=== PATIENT | male | born 1955 | race Caucasian/White ===

== ENCOUNTER 2017-03-06 07:30 | Emergency (ER) | payer BC ==
[2017-03-06 07:38] VITALS: BP 135/74
--- NOTE | 2017-03-06 07:53 | UC ---
Respiratory Complaint HPI - HPI Summary HPI Summary: cough x 2 weeks + productive cough , yellow/ green sputum + fever and chills at the start , better now no nasal congestion, no sore throat - History of Current Complaint Chief Complaint: UCRespiratory Stated Complaint: COUGH,CHEST CONGESTION Time Seen by Provider: 03/06/17 07:44 Hx Obtained From: Patient Timing: Constant Severity Initially: Moderate Severity Currently: Moderate Character: Cough: Productive Aggravating Factors: Exertion, Deep Breaths Alleviating Factors: Nothing Associated Signs And Symptoms: Positive: Fever, Chills. Negative: Dyspnea, Pleuritic Chest Pain, Wheezing, Hemoptysis, Dizziness, Calf Pain, Calf Swelling , Edema, URI, Nasal Congestion, Sinus Discomfort - Allergies/Home Medications Allergies/Adverse Reactions: Allergies Allergy/AdvReac Type Severity Reaction Status Date / Time Penicillins Allergy Intermediate Rash Verified 03/06/17 07:38 PMH/Surg Hx/FS Hx/Imm Hx Previously Healthy: Yes - Surgical History Surgical History: Yes Surgery Procedure, Year, and Place: R ROTATOR CUFF REPAIR. RUPTURED L ACHILLES TENDON REPAIR. LEFT TORN MENISCUS KNEE--SX REPAIR - Family History Known Family History: Negative: Diabetes - Social History Alcohol Use: Daily Alcohol Amount: glass of wine Substance Use Type: None Smoking Status (MU): Never Smoked Tobacco Type: Cigarettes Have You Smoked in the Last Year: No When Did the Patient Quit Smoking/Using Tobacco: 30 YRS AGO - Immunization History Most Recent Influenza Vaccination: FALL 2013 Most Recent Tetanus Shot: UNKNOWN Hx Tetanus, Diphtheria Vaccination: Yes Vaccination Up to Date: Yes Review of Systems Constitutional: Fever, Chills Skin: Negative Eyes: Negative ENT: Negative Respiratory: Cough Cardiovascular: Negative Gastrointestinal: Negative Genitourinary: Negative All Other Systems Reviewed And Are Negative: Yes Physical Exam Triage Information Reviewed: Yes Appearance: Well-Appearing, No Pain Distress, Well-Nourished Vital Signs: Initial Vital Signs Temp 98.5 F 03/06/17 07:31 Pulse 61 03/06/17 07:31 Resp 16 03/06/17 07:31 BP 135/74 03/06/17 07:31 Pulse Ox 98 03/06/17 07:31 Vital Signs Reviewed: Yes Eyes: Positive: Conjunctiva Clear ENT: Positive: Normal ENT inspection, Pharynx normal, TMs normal. Negative: Nasal congestion, Nasal drainage Neck: Positive: Supple, Nontender, No Lymphadenopathy Respiratory: Positive: Chest non-tender, Lungs clear, Normal breath sounds Cardiovascular Exam: Normal Cardiovascular: Positive: RRR, No Murmur, Pulses Normal Skin Exam: Normal UC Diagnostic Evaluation - Laboratory O2 Sat by Pulse Oximetry: 98 Respiratory Course/Dx - Differential Dx/Diagnosis Provider Diagnoses: acute bronchitis Discharge - Discharge Plan Condition: Stable Disposition: HOME Prescriptions: Azithromycin TAB* [Zithromax TAB (Z-DANIEL) 250 mg #6 tabs] 2 tab PO .TODAY, THEN 1 DAILY #1 daniel Patient Education Materials: Acute Bronchitis (ED) Referrals: Lindsey Cosme PA [Primary Care Provider] - If Needed
== END 2017-03-06 07:57 | disposition home or self-care (01) ==
LOC: UCCORT 07:30
DX: J20.9 Acute bronchitis, unspecified (principal); Z88.0 Allergy status to penicillin
CPT/HCPCS: 99212; G0463

== ENCOUNTER 2019-03-14 17:44 | Emergency (ER) | payer MEDICARE, BC ==
[2019-03-14 17:58] VITALS: BP 145/86
[2019-03-14] MEDS ORDERED: Tetan/Diph/Pertus SYR(Tdap)* 0.5 ML SYR(BOOSTRIX) use SYR IM ONE (18:01)
--- NOTE | 2019-03-14 18:19 | UC ---
Bite Injury/Animal HPI - HPI Summary HPI Summary: 63 yo male with dog bite to left calf that occurred about 1 pm dogs shots UTD unsure of last TETANUS shot pain with wt bearing - History of Current Complaint Chief Complaint: UCBiteInjury Stated Complaint: DOG BITE Time Seen by Provider: 03/14/19 17:52 Hx Obtained From: Patient Severity Currently: Mild Severity Initially: Moderate Pain Intensity: 1 Pain Scale Used: 0-10 Numeric Onset/Duration: Sudden Onset Has Animal Been Immunized?: Yes Character: Puncture Aggravating Factor(s): Other - wt bearing Alleviating Factor(s): Rest Associated Signs And Symptoms: Positive: Swelling - slight Hx of Bite: Provoked by: - entering dogs domain Animal Available for Observation: Yes Animal Control Notified: Yes Body - Head: 1 - PW x 4 (only one clinically significant) - Allergies/Home Medications Allergies/Adverse Reactions: Allergies Allergy/AdvReac Type Severity Reaction Status Date / Time Penicillins Allergy Intermediate Rash Verified 03/14/19 17:58 PMH/Surg Hx/FS Hx/Imm Hx Previously Healthy: Yes - Surgical History Surgical History: Yes Surgery Procedure, Year, and Place: R ROTATOR CUFF REPAIR. RUPTURED L ACHILLES TENDON REPAIR. LEFT TORN MENISCUS KNEE--SX REPAIR - Family History Known Family History: Positive: Unknown - states he knowns very little about his parents medical history Negative: Diabetes - Social History Alcohol Use: Daily Alcohol Amount: glass of wine Substance Use Type: None Smoking Status (MU): Never Smoked Tobacco Type: Cigarettes Have You Smoked in the Last Year: No When Did the Patient Quit Smoking/Using Tobacco: 30 YRS AGO - Immunization History Most Recent Influenza Vaccination: FALL 2013 Most Recent Tetanus Shot: UNKNOWN Hx Tetanus, Diphtheria Vaccination: Yes Vaccination Up to Date: Yes Review of Systems All Other Systems Reviewed And Are Negative: Yes Constitutional: Positive: Negative Skin: Positive: Negative Eyes: Positive: Negative ENT: Positive: Negative Respiratory: Positive: Negative Cardiovascular: Positive: Negative Gastrointestinal: Positive: Negative Genitourinary: Positive: Negative Motor: Positive: Negative Neurovascular: Positive: Negative Musculoskeletal: Positive: Myalgia - at bite site Neurological: Positive: Negative Psychological: Positive: Negative Physical Exam Triage Information Reviewed: Yes Appearance: Well-Appearing, No Pain Distress, Well-Nourished Vital Signs: Initial Vital Signs Temp 98.9 F 03/14/19 17:54 Pulse 83 03/14/19 17:54 Resp 17 03/14/19 17:54 BP 145/86 03/14/19 17:54 Pulse Ox 98 03/14/19 17:54 Vital Signs Reviewed: Yes Eyes: Positive: Conjunctiva Clear ENT: Negative: Hearing grossly normal - [place], Nasal congestion, Nasal drainage, Trismus, Muffled voice, Hoarse voice Dental Exam: Normal Neck: Positive: Supple, Nontender Respiratory: Positive: Lungs clear, Normal breath sounds, No respiratory distress, No accessory muscle use Cardiovascular: Positive: RRR, No Murmur Musculoskeletal: Positive: ROM Intact, Other: - edema around bite site Neurological: Positive: Alert Psychological Exam: Normal Skin Exam: Other - Deep appearing PW left calf and three superficial PW Bite Injury Course/Dx - Course Course Of Treatment: irrigated with 450cc NS - Differential Dx/Diagnosis Provider Diagnosis: Dog bite of left calf, Elevated BP without diagnosis of hypertension Discharge - Sign-Out/Discharge Documenting (check all that apply): Patient Departure All imaging exams completed and their final reports reviewed: No Studies - Discharge Plan Condition: Stable Disposition: HOME Prescriptions: DOXYcycline CAP(*) [DOXYcycline 100MG CAP(*)] 100 mg PO BID #14 cap Patient Education Materials: Animal Bite (ED), Warm Compress or Soak (ED) Referrals: Lindsey Cosme PA [Primary Care Provider] - 3 Days Additional Instructions: To ER for increased pain/redness/pus or fever This injury is at risk of potentially serious infection warm compresses rest elevation - Billing Disposition and Condition Condition: STABLE Disposition: Home
== END 2019-03-14 18:29 | disposition home or self-care (01) ==
LOC: UCCORT 17:44
DX: S81.852A Open bite, left lower leg, initial encounter (principal); R03.0 Elevated blood-pressure reading, without diagnosis of hypertension; W54.0XXA Bitten by dog, initial encounter; Y93.9 Activity, unspecified; Y92.9 Unspecified place or not applicable; Z87.891 Personal history of nicotine dependence
CPT/HCPCS: 90471; 90715; 99212; G0463